=== PATIENT | male | born 1975 | race Caucasian/White ===

== ENCOUNTER 2018-05-26 18:46 | Emergency (ER) | payer SELFPAY ==
[~2018-05-26] VITALS: Ht 165.1 cm; Wt 80.0 kg
[2018-05-26] MEDS ORDERED: CYCLOBENZAPRINE 10MG TABLET PO ONE (22:45)
[2018-05-26 23:12] VITALS: BP 134/79
== END 2018-05-26 23:17 | disposition home or self-care (01) ==
LOC: ER 18:46
DX: M54.32 Sciatica, left side (principal)
CPT/HCPCS: 99283